=== PATIENT | female | born 1970 | race Hispanic/Latino ===

== ENCOUNTER 2016-05-27 10:59 | Emergency (ER) | payer OTHER ==
[~2016-05-27] VITALS: Ht 152.4 cm; Wt 54.4 kg
[2016-05-27 11:05] VITALS: BP 136/78
--- NOTE | 2016-05-27 11:31 | ED GENERAL ADULT ---
History of Present Illness General Chief Complaint: General Adult Stated Complaint: NEEDLE STICK AT WORK Source: patient Exam Limitations: language barrier Vital Signs & Intake/Output Vital Signs & Intake/Output Vital Signs Date Time Temp Pulse Resp B/P Pulse O2 O2 Flow FiO2 Ox Delivery Rate 05/27 1105 96.6 92 16 136/78 Allergies Coded Allergies: No Known Allergies (05/27/16) Triage Note: PT STATES SHE JUST GOT STUCK BY A NEEDLE STATES SHE WAS PUTTING A RAZOR IN THE SHARPS CONTAINER AT WORK AND THE NEEDLE WAS STICKING OUT AND PUNCTURED HER RIGHT POINTER FINGER. Triage Nurses Notes Reviewed? yes Onset: Abrupt Duration: better Injury Environment: work Severity: mild Severity Numbers: 1 Modifying Factors: Improves With: rest. 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 Patient states that her immunizations are up-to-date especially her hepatitis C booster is up-to-date however patient is unknown of her last tetanus shot. Patient does state that there are 2 source patients in the room where she was working The source patient's currently are unknown at this time Patient states that the bleeding had stopped right away. Patient denies any pain. Patient presents to emergency room for blood work requested for herself. Patient believes that the last time that a needle was disposed in the patient's room was yesterday evening however she does not know this exactly History is limited due to patient being primarily Welsh-speaking (ZAIRA BURRELL) Past History Travel History Traveled to [place] past 21 day No Medical History Any Pertinent Medical History? see below for history Hepatic: HEPA AUTOIMMUNE Surgical History Surgical History: non-contributory Psychosocial History What is your primary language Rwandan Tobacco Use: Never used ETOH Use: denies use Illicit Drug Use: denies illicit drug use Family History Hx Contributory? No (ZAIRA BURRELL) Review of Systems Review of Systems Constitutional: Reports: no symptoms. EENTM: Reports: no symptoms. Respiratory: Reports: no symptoms. Cardiovascular: Reports: no symptoms. GI: Reports: no symptoms. Genitourinary: Reports: no symptoms. Musculoskeletal: Reports: no symptoms. Skin: Reports: see HPI. Neurological/Psychological: Reports: no symptoms. Hematologic/Endocrine: Reports: see HPI, bleeding. Immunologic/Allergic: Reports: no symptoms. All Other Systems: Reviewed and Negative (ZAIRA BURRELL) Physical Exam Physical Exam General Appearance: no apparent distress, alert Skin: intact, normal color, warm/dry, RIGHT INDEX FINGER NORMAL INSPECTION NONTENDER SKIN INTACT Comments: Well-developed well-nourished no apparent distress. HEENT: Atraumatic, extraocular motion intact Neck: Supple, no lymphadenopathy Back: Nontender Respiratory: No respiratory distress Extremities: No edema, full range of motion Neuro: Alert and oriented x3 Psych: Mood affect normal, normal memory normal judgment. Core Measures ACS in differential dx? No CVA/TIA Diagnosis: No Severe Sepsis Present: No Septic Shock Present: No (ZAIRA BURRELL) Progress Differential Diagnoses I considered the following diagnoses in my evaluation of the patient: [HIV, hepatitis B, hepatitis C, tetanus, MRSA, needlestick] Plan of Care: Orders Procedure Date/time Status HIV EXPOSURE/NEEDLESTICK 05/27 1119 Active HUMAN BETA HCG SCREEN 05/27 1119 Active HEPT C ANTIBODY 05/27 111 Active HEPT B SURFACE ANTIBODY 05/27 1119 Active GAMMA GLUTAMYL TRANSFERASE 05/27 1119 Active COMPREHENSIVE METABOLIC PANEL 05/27 1119 Active CBC WITHOUT DIFFERENTIAL 05/27 1119 Complete TRNSFRASE ASPART AMINO 05/27 1119 Active TRNSFRAS ALANINE AMINO 05/27 1119 Active Laboratory Tests 05/27/16 1137: Sodium Pending, Potassium Pending, Chloride Pending, Carbon Dioxide Pending, Anion Gap Pending, BUN Pending, Creatinine Pending, BUN/Creatinine Ratio Pending , Glucose Pending, Calcium Pending, Total Bilirubin Pending, GGT Pending, AST Pending, ALT Pending, Alkaline Phosphatase Pending, Total Protein Pending, Albumin Pending, Globulin Pending, Albumin/Globulin Ratio Pending, Total Beta HCG NEGATIVE, CBC w Diff NO MAN DIFF REQ, RBC 4.28, MCV 81.2, MCH 26.1 L, RDW 16.6 H, MPV 8.7, Gran % 38.8 L, Lymphocytes % 48.2, Monocytes % 8.8, Eosinophils % 3.5, Basophils % 0.7, Absolute Granulocytes 2.2, Absolute Lymphocytes 2.7, Absolute Monocytes 0.5, Absolute Eosinophils 0.2, Absolute Basophils 0, PUBS MCHC 32.2 L, Hep Bs Antibody Pending, Hepatitis C Antibody Pending, HIV 1&2 Antibody Pending Currently and physical exam findings patient has unremarkable exam and the puncture wound has closed. I initially called the PEP Hotline in which they state the risk of exposure after nine-hour hours of a needle is approximately 10 % and which patient states that the last time a needle was used in the room was approximately 12 hours ago. The Hotline also discussed with me statistics that the rate of transfer is approximately 0.23% of a HIV exposed patient to and on exposed patient they also state that a glove use also decreases the rate of transmission. I discussed and informed patient of THE STATISTIC however I did offer prophylactic treatment and she declined. I did also inform patient that she has a three-day window to begin the prophylactic treatment. I strongly advised patient to follow-up with her employer to find out the history of the 2 source patients that were living in the room at the time and to see if they would consents on giving blood for HIV and hepatitis evaluation. I also discussed patient's tetanus history and which she does not know when her last booster was and she declines tetanus booster at this time and I discussed with patient risks and benefits of this to receive however she states that she will call her primary care doctor tomorrow and find out what her immunization record is and if needed she will return to the emergency room for the tetanus. Patient's blood work was obtained for preliminary evaluation (ZAIRA BURRELL) Initial ED EKG: none (ZAIRA BURRELL) Departure Departure Disposition: HOME OR SELF CARE Condition: Stable Clinical Impression Primary Impression: Needlestick injury accident Referrals: SHELBIE CHIU,BOAZ CORBETT (PCP/Family) Additional Instructions: As discussed please follow-up with your employer and occupational medicine for follow-up. Please follow-up with your primary care doctor of your immunizations especially your tetanus booster and if over 5 years ago return to emergency room for the booster immunization of tetanus. Please follow-up with your employer to obtain the 2 residents past medical history especially for hepatitis and or HIV. If possible please obtain consent for blood work evaluation from the 2 residence to evaluate hepatitis and HIV. If you note signs of infection redness , pain, swelling, discharge return to emergency room. Follow-up tomorrow and call the emergency room for results of your blood work. If the source patient's are positive of HIV and if known in the following 3 days return to the emergency room to receive prophylactic treatment medication prescriptions. Departure Forms: Customer Survey General Discharge Information (ZAIRA BURRELL) PA/CONDUCTOR/ENGINEER Co-Sign Statement Statement: ED Attending supervision documentation- [] I saw and evaluated the patient. I have also reviewed all the pertinent lab results and diagnostic results. I agree with the findings and the plan of care as documented in the PA's/CONDUCTOR/ENGINEER's documentation. x I have reviewed the ED Record and agree with the PA's/CONDUCTOR/ENGINEER's documentation. [] Additions or exceptions (if any) to the PAs/CONDUCTOR/ENGINEER's note and plan are summarized below: [] (ELDA KINGSLEY,FRANNIE) Critical Care Note Critical Care Note Critical Care Time: non-applicable (ZAIRA BURRELL)
[2016-05-27 11:58] LABS: ABSOLUTE BASOPHIL COUNT 0 /CUMM (0.0-0.2); ABSOLUTE EOSINOPHIL COUNT 0.2 /CUMM (0.0-0.7); ABSOLUTE GRANULOCYTE CT 2.2 /CUMM (1.4-6.5); ABSOLUTE LYMPH COUNT 2.7 /CUMM (1.2-3.4); ABSOLUTE MONOCYTE COUNT 0.5 /CUMM (0.10-0.60); BASOPHIL % 0.7 % (0.0-2.0); EOSINOPHIL % 3.5 % (0-5); GRANULOCYTE % 38.8 % (42.2-75.2); HEMATOCRIT 34.7 % (37-47); MEAN CORPUSCULAR HGB 26.1 PG (27.0-31.0); MEAN CORPUSCULAR HGB CONC 32.2 G/DL (33.0-37.0); MEAN CORPUSCULAR VOLUME 81.2 FL (81.0-99.0); MEAN PLATELET VOLUME 8.7 FL (7.4-10.4); PLATELET COUNT 326 /CUMM (130-400); RBC DISTRIBUTION WIDTH 16.6 % (11.5-14.5); RED BLOOD CELL CT 4.28 /CUMM (4.20-5.40); WHITE BLOOD CELL COUNT 5.7 /CUMM (4.8-10.8)
== END 2016-05-27 11:58 ==
LOC: ERH 10:59
PROVIDERS: Physician Assistant
DX: S61.230A Puncture wound without foreign body of right index finger without damage to nail, initial encounter (principal); W46.1XXA Contact with contaminated hypodermic needle, initial encounter
CPT/HCPCS: 86803; 87389